=== PATIENT | male | born 1980 ===

== ENCOUNTER 2017-04-05 10:57 | Emergency (ER) | payer SELFPAY ==
[~2017-04-05] VITALS: Ht 180.3 cm; Wt 80.0 kg
[2017-04-05 10:58] VITALS: BP 176/116; PULSE 69; RESP 18; TEMP 98.2; O2SAT 100
--- NOTE | 2017-04-05 11:18 | PD ---
HPI Chief Complaint: Complaint Time Seen by Provider: 11:05 Travel History International Travel<30 days: No Contact w/Intl Traveler<30days: No Traveled to known affect area: No History of Present Illness HPI 36-year-old male presents to the emergency department complaining of a tender penile lesion for 3 days. He denies actual penile discharge, only discharge from the lesion. She states that he had oral sex and subsequently anal intercourse and started developing the symptoms over night. 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 States that he sometimes has pain but otherwise is a asymptomatic. Patient also denies fever, chills, nausea, vomiting, diarrhea, groin pain. Patient does not take medication regularly and has no medical history PFSH Past Medical History Medical History: Denies Significant Hx Past Surgical History Surgical History: No Previous Surgery Social History Alcohol Use: Yes (OCCASIONAL) Tobacco Use: Yes Substance Use: No Allergies-Medications (Allergen,Severity, Reaction): Coded Allergies: No Known Allergies (Unverified , 04/05/17) Reported Meds & Prescriptions Reported Meds & Active Scripts Active Doxycycline Hyclate 100 Mg Cap 100 Mg PO BID Review of Systems Except as stated in HPI: all other systems reviewed are Neg Physical Exam Narrative GENERAL: Well-nourished, well-developed patient. SKIN: Focused skin assessment warm/dry. HEAD: Normocephalic. EYES: No scleral icterus. No injection or drainage. NECK: Supple, trachea midline. No JVD or lymphadenopathy. CARDIOVASCULAR: Regular rate and rhythm without murmurs, gallops, or rubs. RESPIRATORY: Breath sounds equal bilaterally. No accessory muscle use. GASTROINTESTINAL: Abdomen soft, non-tender, nondistended. exam: Uncircumcised, anterior portion of the penis- 1 cm U-shaped indurated lesion with distal puncta, no discharge. No lymphadenopathy of the groin or tenderness. MUSCULOSKELETAL: No cyanosis, or edema. BACK: Nontender without obvious deformity. No CVA tenderness. Data Data Last Documented VS Vital Signs Date Time Temp Pulse Resp B/P (MAP) Pulse Ox O2 Delivery O2 Flow Rate FiO2 04/05/17 10:58 98.2 69 18 176/116 (136) 100 Room Air Orders Orders Gc And Chlamydia Pcr (04/05/17 11:12) Ceftriaxone Inj (Rocephin Inj) (04/05/17 11:30) Ed Discharge Order (04/05/17 11:34) Labs Laboratory Tests Test 04/05/17 11:35 Chlamydia trachomatis DNA (PCR) NOT DETECTED Neisseria gonorrhoeae DNA (PCR) NOT DETECTED MDM Medical Decision Making Medical Screen Exam Complete: Yes Emergency Medical Condition: Yes Differential Diagnosis penile lesion vs chlamydia vs gonorrhea vs HSV vs syphilis Narrative Course 36-year-old male presents to the emergency department complaining of a penile lesion with discharged 3 days. He denies penile discharge. She states that he had oral sex and subsequently anal intercourse and started developing the symptoms over night. 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 States that he sometimes has pain but otherwise is a asymptomatic. Patient also denies fever, chills, nausea, vomiting, diarrhea. Patient does not take medication regularly and has no medical history Vital signs: blood pressure mildly elevated Physical exam: Anxious 36-year-old male, uncircumcised, nondraining lesion on anterior portion of distal penis. U-shaped indurated mass approximately 1 cm with a distal puncta. Patient be treated for chlamydia and gonorrhea- Rocephin and outpatient doxycycline. Patient to return to primary care physician for further treatment and evaluation. Health Department for further testing. Urology for evaluation Return for worsening or persistent symptoms Diagnosis Primary Impression: Infection of penis Referrals: Urologist Additional Instructions: Follow-up with her primary care physician within 3 days. Follow-up with the health department for further testing. Recommend follow-up with urology for reevaluation and further treatment of the lesion. Take all medication as prescribed Scripts Doxycycline Hyclate (Doxycycline Hyclate) 100 Mg Cap 100 MG PO BID for Infection, #20 CAP 0 Refills Prov: Rhea Quintanilla MD 04/05/17 Disposition: 01 DISCHARGE HOME Condition: Stable Kiersten Sawyer Apr 05, 2017 11:18
[2017-04-05] MEDS ORDERED: DOXY100C PO (11:19)
[2017-04-05] MEDS ORDERED: cefTRIAXone 250 MG VIAL IM ONE (11:30)
[2017-04-05 14:52] LABS: CHLAMYDIA PCR NOT DETECTED (NOT DETECT); NEISSERIA PCR NOT DETECTED (NOT DETECT)
== END 2017-04-05 12:00 | disposition home or self-care (01) ==
LOC: NEPD 10:57
DX: N48.29 Other inflammatory disorders of penis (principal); Z72.0 Tobacco use
CPT/HCPCS: 87491; 87591; 96372; 99284; J0696

== ENCOUNTER 2017-04-09 10:46 | Emergency (ER) | payer SELFPAY ==
[~2017-04-09] VITALS: Ht 180.3 cm; Wt 79.0 kg
[~2017-04-09 10:46] MED LIST: DOXY100C PO
[2017-04-09 10:47] VITALS: BP 137/87; PULSE 90; RESP 16; TEMP 98.1; O2SAT 99
[2017-04-09] MEDS ORDERED: DOXY100C PO (11:24)
--- NOTE | 2017-04-09 11:26 | PD ---
HPI Chief Complaint: Medication Refill Request Time Seen by Provider: 11:19 Travel History International Travel<30 days: No Contact w/Intl Traveler<30days: No Traveled to known affect area: No History of Present Illness HPI 36-year-old male who presents to emergency room for a prescription for doxycycline, patient reports that he was recently treated for an infection, he started taking his antibiotics but lost his bottle of pills. Patient reports that his symptoms are improving, patient is only here for prescription for his antibiotics. Patient with no other complaints at this time. History Past Medical Histgory Medical History: Denies Significant Hx Past Surgical History Surgical History: No Previous Surgery Social History Alcohol Use: Yes (OCCASIONAL) Tobacco Use: Yes Allergies-Medications (Allergen,Severity, Reaction): Coded Allergies: No Known Allergies (Unverified , 04/09/17) Reported Meds & Prescriptions Reported Meds & Active Scripts Active Doxycycline Hyclate 100 Mg Cap 100 Mg PO BID Review of Systems General / Constitutional: No: Fever Eyes: No: Visual changes HENT: No: Headaches Cardiovascular: No: Chest Pain or Discomfort Respiratory: No: Shortness of Breath Gastrointestinal: No: Abdominal Pain Genitourinary: No: Dysuria Musculoskeletal: No: Pain Skin: No Rash Neurologic: No: Weakness Psychiatric: No: Depression Endocrine: No: Polydipsia Hematologic/Lymphatic: No: Easy Bruising Physical Exam Narrative GENERAL: Well-nourished, well-developed patient. SKIN: Focused skin assessment warm/dry. HEAD: Normocephalic. EYES: No scleral icterus. No injection or drainage. NECK: Supple, trachea midline. No JVD or lymphadenopathy. CARDIOVASCULAR: Regular rate and rhythm without murmurs, gallops, or rubs. RESPIRATORY: Breath sounds equal bilaterally. No accessory muscle use. GASTROINTESTINAL: Abdomen soft, non-tender, nondistended. MUSCULOSKELETAL: No cyanosis, or edema. BACK: Nontender without obvious deformity. No CVA tenderness. Data Data Last Documented VS Vital Signs Date Time Temp Pulse Resp B/P (MAP) Pulse Ox O2 Delivery O2 Flow Rate FiO2 04/09/17 10:47 98.1 90 16 137/87 (104) 99 MDM Medical Screen Exam Complete: Yes Emergency Medical Condition: No Narrative Course A medical screening exam was performed: At the time of evaluation the presenting medical condition was determined not to be of an emergent nature. The patient was given the option of receiving additional care, but declined. Patient was given options for additional community resources from which to obtain care. The Patient Has Been advised to seek medical attention for their presenting complaint. The patient has been advised to return to the ER at any time if an emergent condition develops. Primary Impression: Encounter for medical screening examination Scripts Doxycycline Hyclate (Doxycycline Hyclate) 100 Mg Cap 100 MG PO BID for Infection, #20 CAP 0 Refills Prov: Leah Yadav DO 04/09/17 Leah Yadav DO Apr 09, 2017 11:26
== END 2017-04-09 11:33 | disposition left against medical advice (07) ==
LOC: NEPD 10:46
DX: Z76.0 Encounter for issue of repeat prescription (principal)
CPT/HCPCS: 99281